=== PATIENT | female | born 1950 | race Caucasian/White ===

== ENCOUNTER 2017-01-22 12:12 | Emergency (ER) | payer OTHER ==
[~2017-01-22] VITALS: Ht 157.5 cm; Wt 88.0 kg
[~2017-01-22 12:12] MED LIST: ASAC400T; HYDR-2768; IRON18TA; PRIL10CA
[2017-01-22 12:25] VITALS: BP 140/78; PULSE 87; RESP 16; TEMP 97.9; O2SAT 94
[2017-01-22] MEDS ORDERED: POTASSIUM PO (12:40)
[2017-01-22] MEDS ORDERED: HYDR12.56 PO (12:40)
[2017-01-22] MEDS ORDERED: APRI0.372 PO (12:40)
--- NOTE | 2017-01-22 12:42 | PD ---
HPI . left foot pain x few hours Chief Complaint: Pain: Acute or Chronic Time Seen by Provider: 12:38 Travel History International Travel<30 days: No Contact w/Intl Traveler<30days: No Traveled to known affect area: No History of Present Illness HPI 66-year-old female here with complaints of left foot pain. Patient says she woke up from her sleep this morning and had a very localized quarter size area of pain on her left foot just proximal to her second, third and fourth toe. She denies any injury or trauma. She is not certain if something may have bitten her. She has full range of motion of her toes and is ambulatory. PFSH Past Medical History Blood Disorders: No Heart Rhythm Problems: No Cancer: No Cardiovascular Problems: Yes High Cholesterol: No Chemotherapy: No Chest Pain: No Congestive Heart Failure: No Diminished Hearing: No Endocrine: No Gastrointestinal Disorders: Yes (CHRONS DISEASE & IBS) Hypertension: Yes Immune Disorder: No Musculoskeletal: No Neurologic: No Psychiatric: No Reproductive: No Respiratory: No Myocardial Infarction: No Radiation Therapy: No Tetanus Vaccination: Unknown ?: Not Past Surgical History Cholecystectomy: Yes Hysterectomy: Yes Tonsillectomy: Yes Other Surgery: Yes (TONSILS & GALLBLADDER REMOVED IN 70'S / R BREAST SURGERY IN THE EARLY 90'S ) Social History Alcohol Use: Yes (OCCASIONAL) Tobacco Use: No Substance Use: No Allergies-Medications (Allergen,Severity, Reaction): Coded Allergies: Contrast Media (Verified Allergy, Severe, 01/22/17) Reported Meds & Prescriptions Reported Meds & Active Scripts Active Reported [Potassium] 550 Mg PO DAILY Apriso (Mesalamine) 0.375 Gm Caper 4 Cap PO DAILY Hydrochlorothiazide 12.5 Mg Tab 12.5 Mg PO QOD Review of Systems General / Constitutional: No: Fever Eyes: No: Visual changes HENT: No: Headaches Cardiovascular: No: Chest Pain or Discomfort Respiratory: No: Shortness of Breath Gastrointestinal: No: Abdominal Pain Genitourinary: No: Dysuria Musculoskeletal: Positive: Pain (left foot pain) Skin: No Rash Neurologic: No: Weakness Psychiatric: No: Depression Endocrine: No: Polydipsia Hematologic/Lymphatic: No: Easy Bruising Physical Exam Narrative GENERAL: AAO x 3, no acute distress, Well-nourished, well-developed patient. SKIN: Warm and dry. No visible rashes or bruising. left foot proximal to 2nd - 4th digit; small quarter sized area of very minimal erythema and slight edema. pedal pulse normal. no temperature variation. tender to touch, rest of leg appears normal HEAD: Normocephalic and atraumatic. EYES: No scleral icterus. No injection or drainage. ENT: No nasal drainage noted. Mucous membranes pink. Airway patent. NECK: Supple, trachea midline. No JVD. CARDIOVASCULAR: Regular rate and rhythm without murmurs, gallops, or rubs. RESPIRATORY: Breath sounds equal bilaterally. No accessory muscle use. No rhonchi or rales. GASTROINTESTINAL: visual inspection normal. EXTREMITIES: No cyanosis or edema. BACK: Nontender without obvious deformity. No CVA tenderness. NEURO: Grossly intact PSYCH: AAO x 3, normal affect. Data Data Last Documented VS Vital Signs Date Time Temp Pulse Resp B/P Pulse Ox O2 Delivery O2 Flow Rate FiO2 01/22/17 12:25 97.9 87 16 140/78 94 Orders Methylprednisolone So Succ Inj (Solumedr (01/22/17 12:45) MDM Medical Decision Making Medical Screen Exam Complete: Yes Emergency Medical Condition: Yes Medical Record Reviewed: Yes Differential Diagnosis skin irritation, insect bite, less likely foot fracture, less likely bone contusion Narrative Course 66 yr old female here with c/o foot pain x few hours. This appears to be a possible insect bite. Insect type is unknown. I advised shot of solumedrol here in the ED. Benadryl cream at home. Tylenol PRN pain. Patient verbalized understanding of instructions, questions were answered, and thanked me for their care. I advised them if their condition worsens, please return to the nearest emergency room for further care. Diagnosis Primary Impression: Skin irritation Additional Impression: Insect bite Qualified Code: W57.XXXA - Insect bite, initial encounter Patient Instructions: General Instructions Additional Instructions: You may experience tenderness around the injection site. This is normal. You can ice it as necessary. Use [id number] topical Benadryl as directed for relief. Take Tylenol as needed for pain relief. If your symptoms do not improve in the next 5 days, follow-up with primary care provider or return to the emergency department. If you develop any worsening of your condition, go to the nearest emergency department Disposition: DISCHARGE HOME Condition: Stable Ariela Cha Jan 22, 2017 12:41
[2017-01-22] MEDS ORDERED: methylPREDNISolone SOD SUCC 125 MG/2 ML VIAL IM ONE (12:45)
== END 2017-01-22 12:57 | disposition home or self-care (01) ==
LOC: PHED 12:12
DX: R23.8 Other skin changes (principal); I10 Essential (primary) hypertension; Z86.79 Personal history of other diseases of the circulatory system; Z87.19 Personal history of other diseases of the digestive system; W57.XXXA Bitten or stung by nonvenomous insect and other nonvenomous arthropods, initial encounter
CPT/HCPCS: 96372; 99284; J2930

== ENCOUNTER 2017-10-13 14:20 | Emergency (ER) | payer MEDICARE ==
[~2017-10-13] VITALS: Ht 154.9 cm; Wt 94.0 kg
[~2017-10-13 14:20] MED LIST changes: +APRI0.372 PO; -ASAC400T; -HYDR-2768; +HYDR12.56 PO; -IRON18TA; +POTASSIUM PO; -PRIL10CA
[2017-10-13 14:31] VITALS: BP 146/83; PULSE 81; RESP 16; TEMP 97.8; O2SAT 96
[2017-10-13] MEDS ORDERED: VALA1TAB PO (14:45)
[2017-10-13] MEDS ORDERED: MEDR4PAK PO (14:45)
[2017-10-13] MEDS ORDERED: HYDR-3516 PO (15:22)
--- NOTE | 2017-10-13 15:22 | PD ---
HPI Chief Complaint: Pain: Acute or Chronic Time Seen by Provider: 15:06 Travel History International Travel<30 days: No Contact w/Intl Traveler<30days: No Traveled to known affect area: No History of Present Illness HPI 67-year-old female complains of shingles. She has had them for about 5-6 days. Primary care provider provided valacyclovir methylprednisolone which has not helped much. Pain is constant. Burning quality reported. PFSH Past Medical History Blood Disorders: No Heart Rhythm Problems: No Cancer: No Cardiovascular Problems: Yes High Cholesterol: No Chemotherapy: No Chest Pain: No Congestive Heart Failure: No Diminished Hearing: No Endocrine: No Gastrointestinal Disorders: Yes (CHRONS DISEASE & IBS) Hypertension: Yes Immune Disorder: No Musculoskeletal: No Neurologic: No Psychiatric: No Reproductive: No Respiratory: No Myocardial Infarction: No Radiation Therapy: No Influenza Vaccination: Yes ?: Not Past Surgical History Cholecystectomy: Yes Hysterectomy: Yes Tonsillectomy: Yes Other Surgery: Yes (TONSILS & GALLBLADDER REMOVED IN 'S / R BREAST SURGERY IN THE EARLY S ) Social History Alcohol Use: Yes (OCCASIONAL) Tobacco Use: No Substance Use: No Allergies-Medications (Allergen,Severity, Reaction): Coded Allergies: diatrizoate meglumine (Unverified Allergy, Severe, 10/13/17) gadobenic acid (Unverified Allergy, Severe, 10/13/17) gadodiamide (Unverified Allergy, Severe, 10/13/17) gadoteridol (Unverified Allergy, Severe, 10/13/17) iodixanol (Unverified Allergy, Severe, 10/13/17) iohexol (Unverified Allergy, Severe, 10/13/17) Reported Meds & Prescriptions Reported Meds & Active Scripts Active Reported Medrol Dosepak (Methylprednisolone) 4 Mg Dspk 4 Mg PO DIRECTED Per Pharmacist direction Valacyclovir (Valacyclovir HCl) 1,000 Mg Tab 1,000 Mg PO TID [Potassium] 550 Mg PO DAILY Apriso (Mesalamine) 0.375 Gm Caper 4 Cap PO DAILY Hydrochlorothiazide 12.5 Mg Tab 12.5 Mg PO QOD Review of Systems General / Constitutional: No: Fever Eyes: No: Blurred Vision HENT: No: Vertigo, Rhinorrhea Physical Exam Narrative GENERAL: 67-year-old female no acute distress Vital Signs Date Time Temp Pulse Resp B/P (MAP) Pulse Ox O2 Delivery O2 Flow Rate FiO2 10/13/17 14:31 97.8 81 16 146/83 (104) 96 SKIN: Warm and dry. Vesicular lesions about the left lower thoracic dermatome consistent with shingles. HEAD: Normocephalic. EYES: No scleral icterus. No injection or drainage. NECK: Supple, trachea midline. No JVD or lymphadenopathy. CARDIOVASCULAR: Regular rate and rhythm without murmurs, gallops, or rubs. RESPIRATORY: Breath sounds equal bilaterally. No accessory muscle use. GASTROINTESTINAL: Abdomen soft, non-tender, nondistended. MUSCULOSKELETAL: No cyanosis, or edema. BACK: Nontender without obvious deformity. No CVA tenderness. Data Data Last Documented VS Vital Signs Date Time Temp Pulse Resp B/P (MAP) Pulse Ox O2 Delivery O2 Flow Rate FiO2 10/13/17 14:31 97.8 81 16 146/83 (104) 96 [place] Medical Decision Making Medical Screen Exam Complete: Yes Emergency Medical Condition: Yes Medical Record Reviewed: Yes Differential Diagnosis Shingles, cellulitis, abscess Narrative Course Pain control w scripts as below. Diagnosis Primary Impression: Shingles Qualified Codes: B02.9 - Zoster without complications Referrals: Primary Care Physician as needed Med/Other Pt SpecificInfo: Prescription(s) given Scripts Hydrocodone/Acetaminophen (Hydrocodone-Acetamin 5-325 mg) 5 Mg-325 Mg Tablet 1-2 TAB PO Q6HR Y for PAIN SCALE 6 TO 10, #20 Prov: Ugo Nelson MD 10/13/17 Disposition: 01 DISCHARGE HOME Condition: Stable Ugo Nelson MD Oct 13, 2017 15:22
== END 2017-10-13 15:33 | disposition home or self-care (01) ==
LOC: PHEFT 14:20
DX: B02.9 Zoster without complications (principal); I10 Essential (primary) hypertension; Z87.19 Personal history of other diseases of the digestive system; Z79.899 Other long term (current) drug therapy; Z88.8 Allergy status to other drugs, medicaments and biological substances
CPT/HCPCS: 99283